=== PATIENT | female | born 1990 | race Caucasian/White ===

== ENCOUNTER 2016-10-13 04:04 | Emergency (ER) | payer OTHER ==
[~2016-10-13] VITALS: Ht 154.9 cm; Wt 59.0 kg
[~2016-10-13 04:04] MED LIST: MACROBID100 MG PO; NAPROSYN 500 M500 MG PO; NORFLEX100 MG PO; PERCOCET 325 MG1 TA2 PO; VALIUM5 M1 PO
--- NOTE | 2016-10-13 04:21 | ED GI/GU/ABDOMINAL COMPLAINT ---
History of Present Illness General Chief Complaint: Nausea, Vomiting, Diarrhea Stated Complaint: "I'VE BE UP ALL NIGHT VOMITING UNCONTROLLABY" Source: patient, old records Exam Limitations: no limitations Vital Signs & Intake/Output Vital Signs & Intake/Output Vital Signs Date Time Temp Pulse Resp B/P Pulse O2 O2 Flow FiO2 Ox Delivery Rate 10/13 0732 98.2 98 18 108/68 99 Room Air 10/13 0411 97.1 102 20 145/92 97 Room Air Allergies Coded Allergies: NO KNOWN ALLERGIES (04/29/15) Reconcile Medications Diazepam (Valium) 5 MG TAB 1-2 TAB PO Q6P PRN muscle strain Naproxen (Naprosyn) 500 MG TAB 1 TAB PO BID PRN BACK PAIN NITROFURANTOIN MONOHYD/M-CRYST (Macrobid 100 MG Capsule) 100 MG CAP 1 TAB PO BID UTI Orphenadrine Citrate (Norflex) [address] 1 TAB PO BID PRN MUSCLE SPASMS OXYCODONE HCL/ACETAMINOPHEN (Percocet 5-325 MG Tablet) 325 MG/5 MG TAB 1-2 TAB PO Q4-6 PRN PRN PAIN Triage Note: PT TO ER STATES N/V SINCE 9PM LAST NIGHT. "I AM NOT ABLE TO KEEP ANYTHING DOWN, NOT EVEN WATER." PT ALSO EXPERIENCING ABD PAIN. DENIES DIARRHEA. Triage Nurses Notes Reviewed? yes ? N Is pt currently ? No HPI: Patient presents with abdominal pain, nausea and vomiting since last evening. Patient hasn't been able to tolerate anything by mouth. There are no fevers or chills. She has crampy bilateral lower quadrant abdominal pain which is constant. There are no aggravating or mitigating factors. The pain is 7 out of 10. There is no radiation. Patient denies any dysuria. (ALONDRA WILLINGHAM,UNRULY Sung) Past History Travel History Traveled to [place] past 21 day No Medical History Any Pertinent Medical History? see below for history Neurological: NONE EENT: NONE Cardiovascular: NONE Respiratory: NONE Gastrointestinal: NONE Hepatic: NONE Renal: NONE Musculoskeletal: chronic back pain, "SPINAL DISABILITY" Psychiatric: anxiety Endocrine: NONE Blood Disorders: NONE Cancer(s): NONE [employer]/Reproductive: NONE Surgical History Surgical History: non-contributory Psychosocial History Who do you live with Mother Services at Home None What is your primary language Swedish Tobacco Use: Never used ETOH Use: denies use Illicit Drug Use: denies illicit drug use Family History Family History, If Any: Relation not specified for: FH: heart disease FH: HTN (hypertension) FH: stroke Hx Contributory? No (ALONDRA WILLINGHAM,UNRULY Sung) Review of Systems Review of Systems Constitutional: Reports: no symptoms. EENTM: Reports: no symptoms. Respiratory: Reports: no symptoms. Cardiovascular: Reports: no symptoms. GI: Reports: see HPI, abdominal pain, nausea, vomiting. Genitourinary: Reports: no symptoms. Musculoskeletal: Reports: no symptoms. Skin: Reports: no symptoms. Neurological/Psychological: Reports: no symptoms. Hematologic/Endocrine: Reports: no symptoms. Immunologic/Allergic: Reports: no symptoms. All Other Systems: Reviewed and Negative (ALONDRA WILLINGHAM,UNRULY Sung) Physical Exam Physical Exam General Appearance: well developed/nourished, alert, awake, anxious, moderate distress Head: atraumatic, normal appearance Eyes: Bilateral: PERRL, EOMI, other (ANICTERIC). Ears, Nose, Throat, Mouth: hearing grossly normal, DRY MUCOUS MEMBRANES Neck: normal inspection, supple, full range of motion Respiratory: normal breath sounds, chest non-tender, no respiratory distress, lungs clear Cardiovascular: regular rate/rhythm, normal peripheral pulses Gastrointestinal: normal bowel sounds, soft, no organomegaly, tenderness ( BILATERAL LOWER QUADRANTS), NO REBOUND OR GUARDING Back: normal inspection Extremities: normal range of motion Neurologic/Psych: no motor/sensory deficits, awake, alert, oriented x 3, normal gait, normal mood/affect Skin: intact, normal color, warm/dry Core Measures ACS in differential dx? No Severe Sepsis Present: No Septic Shock Present: No (ALONDRA WILLINGHAM,UNRULY Sung) Progress Differential Diagnosis: appendicitis, biliary colic, diverticulitis, ectopic , gastritis, hepatitis, ischemic bowel, inflamm bowel dis, intrauterine , pancreatitis, peptic ulcer, PUD/GERD, threatened AB, UTI/pyelo Plan of Care: Orders Procedure Date/time Status LIPASE 10/13 414 Complete HUMAN BETA HCG SCREEN 10/13 414 Complete COMPREHENSIVE METABOLIC PANEL 10/13 414 Complete CBC WITHOUT DIFFERENTIAL 10/13 414 Complete AMYLASE 10/13 414 Complete Laboratory Tests 10/13/16 0500: Anion Gap 12, Estimated GFR > 60, BUN/Creatinine Ratio 20.0, Glucose 89, Calcium 8.3 L, Total Bilirubin 0.5, AST 21, ALT 23, Alkaline Phosphatase 59, Total Protein 6.8, Albumin 3.8, Globulin 3.0, Albumin/Globulin Ratio 1.3, Amylase 59, Lipase 62, Total Beta HCG NEGATIVE 10/13/16 0420: CBC w Diff MAN DIFF ORDERED, RBC 4.74, MCV 89.2, MCH 29.9, RDW 11.9, MPV 7.9, Gran % 89.3 H, Lymphocytes % 6.1 L, Monocytes % 3.8, Eosinophils % 0.8, Basophils % 0 L, Absolute Granulocytes 13.0 H, Segmented Neutrophils 86 H, Band Neutrophils 2, Absolute Lymphocytes 0.9 L, Lymphocytes 9 L, Monocytes 1 L, Absolute Monocytes 0.6, Eosinophils 1, Absolute Eosinophils 0.1, Basophils 1, Absolute Basophils 0, Platelet Estimate ADEQUATE, Normochromic RBCs VERIFIED, Poikilocytosis 1+, Stomatocytes 1+, PUBS MCHC 33.5, Fld Total RBCs Counted 100 Initial ED EKG: none Hand-Off Endorsed To: ROXIE HOWELL DO Endorsed Time: 0700 Pending: CT Comments: Patient continues to have slight pain to the right lower quadrant to palpation. There is still no rebound or guarding however she is tender over the appendix and she has noted a white blood cell count. Symptoms are still most consistent with Norovirus however we will do a CAT scan to rule out appendicitis. (ALONDRA WILLINGHAM,UNRULY Sung) Departure Departure Disposition: HOME OR SELF CARE Condition: Stable Clinical Impression Primary Impression: Lower abdominal pain, unspecified Referrals: KHRIS GUAN MD (PCP/Family) Departure Forms: Customer Survey General Discharge Information (ALONDRA WILLINGHAM,UNRULY Sung) Departure Comments 10/13/16 7:50 am The patient was signed out to me by Dr. Ye. No abdominal pain at this time. CT scan is negative. Labs showed leukocytosis. The patient feels better, still has nausea wants to go. She will be a prescription for Zofran' She will follow-up with her doctor in 3 days or return to the emergency department if worse (ROXIE HOWELL DO)
[2016-10-13 04:30] LABS: ABSOLUTE BASOPHIL COUNT 0 /CUMM (0.0-0.2); ABSOLUTE EOSINOPHIL COUNT 0.1 /CUMM (0.0-0.7); ABSOLUTE LYMPH COUNT 0.9 /CUMM (1.2-3.4); ABSOLUTE MONOCYTE COUNT 0.6 /CUMM (0.10-0.60); BASOPHIL % 0 % (0.0-2.0); EOSINOPHIL % 0.8 % (0-5); GRANULOCYTE % 89.3 % (42.2-75.2); HEMATOCRIT 42.2 % (37-47); MEAN CORPUSCULAR HGB 29.9 PG (27.0-31.0); MEAN CORPUSCULAR HGB CONC 33.5 G/DL (33.0-37.0); MEAN CORPUSCULAR VOLUME 89.2 FL (81.0-99.0); MEAN PLATELET VOLUME 7.9 FL (7.4-10.4); PLATELET COUNT 276 /CUMM (130-400); RBC DISTRIBUTION WIDTH 11.9 % (11.5-14.5); RED BLOOD CELL CT 4.74 /CUMM (4.20-5.40); WHITE BLOOD CELL COUNT 14.6 /CUMM (4.8-10.8)
--- NOTE | 2016-10-13 07:14 | CT SCAN REPORT ---
EXAMINATION: CT ABDOMEN AND PELVIS WITH CONTRAST CLINICAL INFORMATION: Appendicitis. Right lower quadrant pain COMPARISON: None. TECHNIQUE: Multidetector volumetric imaging was performed of the abdomen and pelvis before and after the IV administration of 93 mL of Optiray 320 intravenous contrast. Sagittal and coronal reformatted images were obtained on the technologist's workstation. FINDINGS: LUNG BASES: The visualized lung bases are unremarkable. LIVER, GALLBLADDER, AND BILIARY TREE: The liver is normal in size, shape, and attenuation. No focal hepatic lesion or biliary ductal dilatation is present. The gallbladder is unremarkable with no evidence of radiopaque gallstones, gallbladder wall thickening, or obvious pericholecystic inflammatory changes. PANCREAS: Unremarkable. SPLEEN: Unremarkable. ADRENAL GLANDS: Unremarkable. KIDNEYS AND URETERS: The kidneys are normal in size, shape, and attenuation. No hydronephrosis, hydroureter, or calculi seen. No perinephric stranding. BLADDER: Unremarkable. GASTROINTESTINAL TRACT: The small and large bowel are unremarkable. The appendix is normal. ABDOMINAL WALL: No significant hernia is appreciated. LYMPH NODES: Normal. VASCULAR: Unremarkable. PELVIC VISCERA: The uterus and adnexa are unremarkable. OSSEOUS STRUCTURES: Unremarkable. IMPRESSION: No CT findings to explain the patient's abdominal pain. Normal appendix (coronal 44-46).
[2016-10-13 07:32] VITALS: BP 108/68
[2016-10-13] MEDS ORDERED: ZOFRAN ODT4 M1 SL (08:21)
[2016-10-13] MEDS ORDERED: EFFEXOR XR37.5 M1 PO (08:24)
[2016-10-13] MEDS ORDERED: BENTYL10 M1 PO (08:30)
== END 2016-10-13 08:30 ==
LOC: ERH 04:04
PROVIDERS: Emergency Medicine
DX: R10.31 Right lower quadrant pain (principal); R10.32 Left lower quadrant pain
CPT/HCPCS: 74177; 96361; 96374; 96375; 96376; J1885; J2405